=== PATIENT | male | born 1985 | race Caucasian/White ===

== ENCOUNTER 2017-09-11 14:53 | Emergency (ER) | payer MEDICAID ==
[2017-09-11 16:27] VITALS: BP 150/91
--- NOTE | 2017-09-11 16:30 | UC ---
FLU HPI - HPI Summary HPI Summary: awoke this morning with body aches, sore throat fever - History of Current Complaint Chief Complaint: UCGeneralIllness Stated Complaint: FLU-LIKE SYMPTOMS Time Seen by Provider: 09/11/17 16:29 Hx Obtained From: Patient Onset/Duration: Sudden Onset, Lasting Days - 1 Severity Currently: Mild Severity Initially: Mild Pain Intensity: 2 Pain Scale Used: 0-10 Numeric Associated Signs & Symptoms: Positive: Fever, Myalgia, Cough, Sore Throat - Allergy/Home Medications Allergies/Adverse Reactions: Allergies Allergy/AdvReac Type Severity Reaction Status Date / Time Penicillins Allergy ANAPHYAXIS Verified 09/11/17 16:27 Home Medications: Home Medications Finasteride TAB* [Proscar TAB*] 1.25 mg PO DAILY 09/11/17 [History Confirmed ] PMH/Surg Hx/FS Hx/Imm Hx Previously Healthy: Yes - Surgical History Surgical History: None - Family History Known Family History: Positive: None - Social History Occupation: Student Lives: With Family Alcohol Use: None Substance Use Type: None Smoking Status (MU): Never Smoked Tobacco Review of Systems Constitutional: Fever, Chills, Fatigue Skin: Negative Eyes: Negative ENT: Sore Throat Respiratory: Negative Cardiovascular: Negative Gastrointestinal: Negative Genitourinary: Negative Motor: Negative Neurovascular: Negative Musculoskeletal: Arthralgia, Myalgia Neurological: Headache Psychological: Negative Is Patient Immunocompromised?: No All Other Systems Reviewed And Are Negative: Yes Physical Exam Triage Information Reviewed: Yes Appearance: Well-Nourished, Ill-Appearing - mild, Pain Distress - mild Vital Signs: Initial Vital Signs Temp 99.8 F 09/11/17 16:24 Pulse 102 09/11/17 16:24 Resp 16 09/11/17 16:24 BP 150/91 09/11/17 16:24 Pulse Ox 99 09/11/17 16:24 Vital Signs Reviewed: Yes Eye Exam: Normal Eyes: Positive: Conjunctiva Clear ENT Exam: Normal ENT: Positive: Normal ENT inspection, Hearing grossly normal, Pharyngeal erythema, Nasal congestion, TMs normal, Sinus tenderness, Uvula midline. Negative: Tonsillar swelling, Tonsillar exudate, Trismus, Muffled voice, Hoarse voice, Dental tenderness Dental Exam: Normal Neck exam: Normal Neck: Positive: Supple, Nontender, No Lymphadenopathy Respiratory Exam: Normal Respiratory: Positive: Chest non-tender, Lungs clear, Normal breath sounds, No respiratory distress, No accessory muscle use Cardiovascular Exam: Normal Cardiovascular: Positive: RRR, No Murmur, Pulses Normal, Brisk Capillary Refill Musculoskeletal Exam: Normal Musculoskeletal: Positive: Strength Intact, ROM Intact, No Edema Neurological Exam: Normal Neurological: Positive: Alert, Muscle Tone Normal Psychological Exam: Normal Skin Exam: Normal Diagnostics - Laboratory Diagnostic Studies Completed/Ordered: Influenza A/B (-), RST (+) Flu Course/Dx - Course Course Of Treatment: Zithromax, increase fluids, tylenol, ibuprofen for pain follow at [place] if needed - Differential Dx/Diagnosis Provider Diagnoses: Strep Pharyngitis, Elevated Blood pressure related to Current illness Discharge - Discharge Plan Condition: Stable Disposition: HOME Prescriptions: Azithromycin TAB* [Zithromax TAB (Z-VIPIN) 250 mg #6 tabs] 250 mg PO DAILY #4 tab Patient Education Materials: Strep Throat (ED), Fever in Adults (ED) Referrals: [facility] [Outside] - If Needed
[2017-09-11] MEDS ORDERED: Azithromycin TAB* 250 MG PO ONE (17:00)
== END 2017-09-11 17:13 | disposition home or self-care (01) ==
LOC: UCEAST 14:53
DX: J02.0 Streptococcal pharyngitis (principal); R03.0 Elevated blood-pressure reading, without diagnosis of hypertension; Z88.0 Allergy status to penicillin
CPT/HCPCS: 87502; 87651; 99202; G0463

== ENCOUNTER 2017-09-19 15:58 | Emergency (ER) | payer MEDICAID ==
[2017-09-19 16:18] VITALS: BP 144/88
--- NOTE | 2017-09-19 18:57 | UC ---
Gillian Hope Nilda, scribed for Lucas Caballero MD on 09/19/17 at 1621 . Throat Pain/Nasal Brice HPI - HPI Summary HPI Summary: This patient is a 32 year old M presenting to [facility] [place] with a chief complaint of mild sore throat with R-tonsil swelling for the past week. Pain rated 2/10 in severity. Pt states 8 days ago, he was diagnosed with strep throat and was treated with abx (Azithromycin), which slightly alleviated symptoms. Pt states that now his right tonsil is swollen "to the point that I can feel it pushing against my tongue." Patient reports fatigue, right ear pain, and diarrhea secondary to abx treatment, but denies fever. Allergies include penicillins. - History of Current Complaint Stated Complaint: THROAT PAIN Time Seen by Provider: 09/19/17 16:10 Hx Obtained From: Patient Onset/Duration: Sudden Onset, Lasting Weeks - 1 week, Still Present Severity: Mild Pain Intensity: 2 Pain Scale Used: 0-10 Numeric Associated Signs & Symptoms: Positive: Other - swelling tonsil, fatigue, right ear pain, diarrhea secondary to abx; negative fever. Related History: Other (Noted In Comments) - strep throat Dx 8 days ago. - Allergies/Home Medications Allergies/Adverse Reactions: Allergies Allergy/AdvReac Type Severity Reaction Status Date / Time Penicillins Allergy ANAPHYAXIS Verified 09/19/17 16:14 PMH/Surg Hx/FS Hx/Imm Hx Previously Healthy: Yes - Surgical History Surgical History: None - Family History Known Family History: Positive: Diabetes - Social History Occupation: Student Alcohol Use: None Substance Use Type: None Smoking Status (MU): Never Smoked Tobacco Review of Systems Constitutional: Fatigue, Other - negative fever ENT: Sore Throat, Ear Ache - right, Other - tonsil swelling Gastrointestinal: Diarrhea All Other Systems Reviewed And Are Negative: Yes Physical Exam - Summary Physical Exam Summary: General: well-appearing, no pain distress Skin: warm, color reflects adequate perfusion, dry Head: normal Eyes: EOMI, SHAHEED ENT: Normal voice, Tonsils 2+ bilat but Right slightly larger than Left. No peritonsillar abscess appreciated. No exudates. Bilat TM normal. Positive cervical anterior lymphadenopathy slightly greater on right. Neck: supple, nontender Respiratory: CTA, breath sounds present Cardiovascular: RRR Abdomen: soft, nontender Bowel: present Musculoskeletal: normal, strength/ROM intact Neurological: normal, sensory/motor intact, A&O x3 Psychological: affect/mood appropriate Triage Information Reviewed: Yes Vital Signs: Initial Vital Signs Temp 98 F 09/19/17 16:15 Pulse 79 09/19/17 16:15 Resp 16 09/19/17 16:15 BP 144/88 09/19/17 16:15 Pulse Ox 98 09/19/17 16:15 Vital Signs Reviewed: Yes Throat Pain/Nasal Course/Dx - Course Course Of Treatment: NO PERITONSILLAR ABSCESS ON EXAM. VOICE NORMAL. WILL RX CLINDAMYCIN; F/U WITH ENT IF NOT IMPROVED. REEVAL SOONER IF WORSE. Assessment/Plan: BP noted and advised to follow up with PCP. Medications reviewed. Allergies noted. - Differential Dx/Diagnosis Provider Diagnoses: TONSILLITIS. elevated BP without dx of HTN. Discharge - Discharge Plan Condition: Stable Disposition: HOME Prescriptions: Clindamycin Cap(NF) [Clindamycin Cap 300 mg Cap(NF)] 300 mg PO Q6H #40 cap Patient Education Materials: Tonsillitis (ED) Referrals: [facility] [Provider Group] [facility] [place] [facility] [Outside] No Primary Care Phys,NOPCP [Primary Care Provider] - Additional Instructions: FOLLOW UP WITH ENT IF NOT IMPROVED. GET RECHECKED FOR ANY WORSENING OF YOUR CONDITION OR QUESTIONS OR CONCERNS. YOUR BLOOD PRESSURE WAS ELEVATED TODAY; FOLLOW UP WITH YOUR PRIMARY CARE DOCTOR WITHIN ONE WEEK. The documentation as recorded by the Gillian oshea Nilda accurately reflects the service I personally performed and the decisions made by me, Lucas Caballero MD.
== END 2017-09-19 16:29 | disposition home or self-care (01) ==
LOC: UCEAST 15:58
DX: J03.90 Acute tonsillitis, unspecified (principal); R03.0 Elevated blood-pressure reading, without diagnosis of hypertension
CPT/HCPCS: 99212; G0463

== ENCOUNTER 2017-11-03 10:14 | Emergency (ER) | payer BC, MEDICAID ==
[2017-11-03 10:23] VITALS: BP 122/87
--- NOTE | 2017-11-03 11:14 | RAD ---
INDICATION: Chest pain. Short of breath COMPARISON: November 30, 2009 TECHNIQUE: PA and lateral dual-energy views were obtained. FINDINGS: Bones/Soft Tissues: There are no acute bony findings. Cardiomediastinal: The cardiomediastinal silhouette is normal. Lungs: There are no infiltrates. Pleura: There are no pleural effusions. Other: None IMPRESSION: NO ACTIVE DISEASE
--- NOTE | 2017-11-03 11:42 | UC ---
Respiratory Complaint HPI - HPI Summary HPI Summary: Patient is an otherwise healthy 32-year-old male with a history of mild mitral regurgitation arrives to the with chief complaint of one month history of her mid back pain, worse with deep inhalation and better with rest. He endorses pain intermittently 1 month. Symptoms are not aggravated or alleviated with positioning. Denies cough, but endorses copious amount of green thick sputum production not associated with cough. Denies any fevers, sweats, chills. Denies any headache, calf pain, chest pain. Endorses mild shortness of breath, worse with inhalation. Denies any recent illness, recent sick contacts, or history of asthma or pneumonia. Recent travel approximately 6 weeks ago which was 6 hours and a car, but he thinks pain originally started before this. - History of Current Complaint Chief Complaint: UCRespiratory Stated Complaint: COUGH,CONGESTED Time Seen by Provider: 11/03/17 10:30 Hx Obtained From: Patient Onset/Duration: Sudden Onset, Lasting Weeks Timing: Constant Severity Initially: Mild Severity Currently: Mild Pain Intensity: 4 Pain Scale Used: 0-10 Numeric Character: Sputum Description: - thick green without cough Aggravating Factors: Deep Breaths Alleviating Factors: Nothing Associated Signs And Symptoms: Positive: Dyspnea, URI - Risk Factors Pulmonary Embolism Risk Factors: Negative Cardiac Risk Factors: Negative Pseudomonas Risk Factors: Negative Tuberculosis Risk Factors: Negative - Allergies/Home Medications Allergies/Adverse Reactions: Allergies Allergy/AdvReac Type Severity Reaction Status Date / Time Penicillins Allergy ANAPHYAXIS Verified 11/03/17 10:24 PMH/Surg Hx/FS Hx/Imm Hx Previously Healthy: Yes - Surgical History Surgical History: None - Family History Known Family History: Positive: None, Diabetes - Social History Occupation: Employed Full-time Lives: With Family Alcohol Use: None Substance Use Type: None Smoking Status (MU): Never Smoked Tobacco Review of Systems Constitutional: Fatigue Skin: Negative ENT: Other - sputum production without cough Respiratory: Shortness Of Breath Cardiovascular: Negative Gastrointestinal: Negative Motor: Negative Neurological: Negative Psychological: Negative Is Patient Immunocompromised?: No All Other Systems Reviewed And Are Negative: Yes Physical Exam Triage Information Reviewed: Yes Appearance: Well-Appearing, Well-Nourished Vital Signs: Initial Vital Signs Temp 97.6 F 11/03/17 10:20 Pulse 75 11/03/17 10:20 Resp 16 11/03/17 10:20 BP 122/87 11/03/17 10:20 Pulse Ox 100 11/03/17 10:20 Vital Signs Reviewed: Yes Eye Exam: Normal Eyes: Positive: Conjunctiva Clear Neck exam: Normal Neck: Positive: Supple Respiratory Exam: Normal Respiratory: Positive: Chest non-tender, Lungs clear Cardiovascular Exam: Normal Cardiovascular: Positive: No Murmur Abdominal Exam: Normal Abdomen Description: Positive: Nontender Neurological Exam: Normal Psychological Exam: Normal Psychological: Positive: Normal Response To Family Skin Exam: Normal UC Diagnostic Evaluation - Laboratory O2 Sat by Pulse Oximetry: 100 Respiratory Course/Dx - Course Course Of Treatment: During the course of treatment, the patient is evaluated for mid upper back pain worse with inhalation, and shortness of breath with copious amount of sputum production without cough. EKG and chest x-ray obtained , both which were normal. We have burned a copy of the chest x-ray for his PCP. I have discussed with the patient adding on an antibiotic at this time, but would be unsure if this would improve his symptoms at all. He is agreeing to this and would like me to order the antibiotic, but is unsure if he would like to pick it up at this time. He states he will wait a few more days to see if there is any symptom improvement. He has been taking Mucinex is 1.5 weeks which has been improving his sputum production. He is afebrile and without pain at this time. He will follow back up with his PCP. PERC score 0.0. - Differential Dx/Diagnosis Provider Diagnoses: Sputum production Discharge - Sign-Out/Discharge Documenting (check all that apply): Discharge - Discharge Plan Condition: Stable Disposition: HOME Prescriptions: Azithromyxin VIPIN (NF) [Z-Vipin (Zithromax) 250 mg tabs #6] 2 tab PO .TODAY, THEN 1 DAILY #6 tab Patient Education Materials: Chest Wall Pain (ED) Referrals: No Primary Care Phys,NOPCP [Primary Care Provider] - Additional Instructions: As discussed, I have sent a prescription for the azithromycin to your pharmacy. If any of your symptoms become worse, you may pick this prescription up Please follow-up with your PCP EKG and chest x-ray looked okay. - Billing Disposition and Condition Condition: STABLE Disposition: HOME
== END 2017-11-03 11:24 | disposition home or self-care (01) ==
LOC: UCEAST 10:14
DX: R09.89 Other specified symptoms and signs involving the circulatory and respiratory systems (principal); R07.89 Other chest pain; R53.83 Other fatigue; R06.02 Shortness of breath; Z88.0 Allergy status to penicillin
CPT/HCPCS: 71046; 93005; 99212; G0463

== ENCOUNTER 2018-09-23 18:07 | Emergency (ER) | payer BC, MEDICAID ==
[2018-09-23 18:20] VITALS: BP 142/81
--- NOTE | 2018-09-23 18:37 | UC ---
Cardiac HPI - HPI Summary HPI Summary: 33-year-old male comes to clinic with a chief complaint of chest pain and paresthesias. Patient reports the chest pain is chest tightness 2 out of 10 left anterior chest. He is slightly short of breath no nausea. There is a family history of heart attacks. Denies any recent upper respiratory tract infection symptoms are fevers or chills or chest congestion. The chest tightness does not get worse with laying down or walking. Today patient noticed these having tingling paresthesias in both hands and on his scalp. The paresthesias are worse in the left hand. No history of pulmonary embolus or DVT. No pedal edema. Recent travel. - History of Current Complaint Chief Complaint: UCChestPain Stated Complaint: CHEST PAIN Time Seen by Provider: 09/23/18 18:11 Pain Intensity: 4 - Allergy/Home Medications Allergies/Adverse Reactions: Allergies Allergy/AdvReac Type Severity Reaction Status Date / Time Penicillins Allergy ANAPHYAXIS Verified 09/23/18 18:21 Home Medications: Home Medications Aspirin TAB* [Aspirin 325 MG TAB*] 325 mg PO DAILY 09/23/18 [History Confirmed 09/23/18] PMH/Surg Hx/FS Hx/Imm Hx Previously Healthy: Yes - Surgical History Surgical History: Yes Surgery Procedure, Year, and Place: SEPTOPLASTY - Family History Known Family History: Positive: None, Cardiac Disease, Diabetes - Social History Alcohol Use: None Substance Use Type: None Smoking Status (MU): Never Smoked Tobacco Review of Systems All Other Systems Reviewed And Are Negative: Yes Constitutional: Positive: Negative Skin: Positive: Negative Eyes: Positive: Negative ENT: Positive: Negative Respiratory: Positive: Shortness Of Breath Cardiovascular: Positive: Chest Pain Gastrointestinal: Positive: Negative Motor: Positive: Negative Neurovascular: Positive: Negative Musculoskeletal: Positive: Negative Neurological: Positive: Paresthesia Psychological: Positive: Negative Is Patient Immunocompromised?: No Physical Exam Triage Information Reviewed: Yes Appearance: Well-Appearing, No Pain Distress, Well-Nourished Vital Signs: Initial Vital Signs Temp 97.6 F 09/23/18 18:11 Pulse 69 09/23/18 18:11 Resp 16 09/23/18 18:11 BP 142/81 09/23/18 18:11 Pulse Ox 100 09/23/18 18:11 Vital Signs Reviewed: Yes Eye Exam: Normal Eyes: Positive: Conjunctiva Clear ENT: Positive: Pharynx normal, TMs normal Neck exam: Normal Neck: Positive: Supple Respiratory: Positive: Lungs clear, Normal breath sounds, No respiratory distress Cardiovascular: Positive: RRR Musculoskeletal Exam: Normal Musculoskeletal: Positive: Strength Intact, ROM Intact, No Edema, Other: - no calf tenderness Neurological Exam: Normal Neurological: Positive: Alert, Muscle Tone Normal Psychological Exam: Normal Psychological: Positive: Age Appropriate Behavior Skin Exam: Normal Diagnostics - EKG Cardiac Rate: NL - at 1813 Cardiac Rhythm: Sinus: Normal - 74 bpm Ectopy: None Summary of EKG Findings: ST elevation, probable normal early repol pattern - Assessment/Plan Course Of Treatment: I discussed the EKG with the patient. I do not see any ectopy or ischemic change. With the patient's chest tightness one possibility is pericarditis. Patient is low risk for pulmonary the lists her DVT however that's another possibility. Vital signs stable here in clinic. I recommended further evaluation emergency Department patient prefers to go by POV. - Clinical Impression Provider Diagnosis: Chest pain, Paresthesia Discharge - Sign-Out/Discharge Documenting (check all that apply): Patient Departure All imaging exams completed and their final reports reviewed: No Studies - Discharge Plan Condition: Stable Disposition: HOME-RECOMMEND TO ED Patient Education Materials: Chest Pain (ED), Paresthesia (ED) Referrals: No Primary Care Phys,NOPCP [Primary Care Provider] - Additional Instructions: GO DIRECTLY TO THE EMERGENCY DEPARTMENT FOR FURTHER EVALUATION. - Billing Disposition and Condition Condition: STABLE Disposition: Home-Recommend to ED
== END 2018-09-23 18:42 | disposition home health service (06) ==
LOC: UCEAST 18:07
DX: R07.89 Other chest pain (principal); R20.2 Paresthesia of skin; R06.02 Shortness of breath; Z79.82 Long term (current) use of aspirin; Z88.0 Allergy status to penicillin
CPT/HCPCS: 93005; 99211; G0463

== ENCOUNTER 2019-05-15 13:03 | Emergency (ER) | payer BC, MEDICAID, OTHER ==
[2019-05-15 13:37] LABS: INR 1.12 (0.82-1.09)
[2019-05-15 13:39] LABS: ABS Eosinophils 0.2 10^3/ul (0-0.6); ABS Lymphocytes 1.5 10^3/ul (1.0-4.8); ABS Monocytes 0.4 10^3/ul (0-0.8); ABS Neutrophils 3.1 10^3/ul (1.5-7.7); Eosinophil % 3.3 %; Hematocrit 41 % (42-52); Lymphocyte % 29.2 %; Mean Corpuscular HGB Conc 36 g/dL (31-36); Mean Corpuscular Hemoglobin 32 pg (27-31); Mean Corpuscular Volume 88 fL (80-94); Mean Platelet Volume 7.4 fL (7.4-10.4); Nucleated Red Blood Cells % 0.2; Platelet Count 194 10^3/uL (150-450); Red Blood Count 4.71 10^6 /uL (4.18-5.48); Red Cell Distribution Width 13 % (10-15); White Blood Count 5.2 10^3/uL (3.5-10.8)
--- NOTE | 2019-05-15 13:45 | ED ---
HPI Chest Pain - HPI Summary HPI Summary: Pt is a 33 y/o M presenting to the ED with a chief complaint of neck and chest pain. He states it initially came on about 3 days ago, describes it as tightness bordering on pain, it radiates up the neck, and it has been constantly worsening. He notes he has been more sedentary than usual and that he has significant cardiac hx in his family, specifically of carotid artery thrombosis. He was concerned to he came to the emergency department for evaluation. No history of [place], DVT or PE, smoking, recent long trips. - History of Current Complaint Chief Complaint: EDChestPainROMI Time Seen by Provider: 05/15/19 13:16 Hx Obtained From: Patient Onset/Duration: Started Days Ago, Still Present Timing: Constant, Lasting Days Initial Severity: Mild Current Severity: Mild Pain Intensity: 3 Pain Scale Used: 0-10 Numeric Chest Pain Location: Diffuse Chest Pain Radiates: Yes Chest Pain Radiates To:: Neck Character: Tightness Aggravating Factor(s): Nothing Alleviating Factor(s): Nothing Associated Signs and Symptoms: Positive: Chest Pain, Other: - neck pain - Allergy/Home Medications Allergies/Adverse Reactions: Allergies Allergy/AdvReac Type Severity Reaction Status Date / Time Penicillins Allergy ANAPHYAXIS Verified 09/23/18 18:21 Home Medications: Home Medications NK [No Home Medications Reported] 05/15/19 [History Confirmed 05/15/19] PMH/Surg Hx/FS Hx/Imm Hx Previously Healthy: Yes Endocrine/Hematology History: Denies: Hx Diabetes Cardiovascular History: Denies: Hx Hypertension Respiratory History: Denies: Hx Chronic Obstructive Pulmonary Disease (COPD), Other Respiratory Problems/Disorders - Surgical History Surgery Procedure, Year, and Place: SEPTOPLASTY Infectious Disease History: No Infectious Disease History: Denies: Traveled Outside the [place] in Last 30 Days - Family History Known Family History: Positive: Cardiac Disease, Diabetes, Blood Disorder - carotid artery thrombosis - Social History Alcohol Use: None Hx Substance Use: No Substance Use Type: Reports: None Hx Tobacco Use: No Smoking Status (MU): Never Smoked Tobacco Review of Systems Positive: Chest Pain Positive: Myalgia - neck pain All Other Systems Reviewed And Are Negative: Yes Physical Exam - Summary Physical Exam Summary: Constitutional: Well-developed, Well-nourished, Alert. (-) Distressed Skin: Warm, Dry HENT: Normocephalic; Atraumatic. Tenderness of L sternocleidomastoid. Eyes: Conjunctiva normal Neck: Musculoskeletal ROM normal neck. (-) JVD, (-) Stridor, (-) Nuchal rigidity Cardio: Rhythm regular, rate normal, Heart sounds normal; Intact distal pulses; Radial pulses are 2+ and symmetric. (-) Murmur Pulmonary/Chest wall: Effort normal. (-) Respiratory distress, (-) Wheezes, (-) Rales Abd: Soft, (-) tenderness, (-) Distension, (-) Guarding, (-) Rebound Musculoskeletal: (-) Edema Lymph: (-) Cervical adenopathy Neuro: Alert, Oriented x3 Psych: Mood and affect Normal Triage Information Reviewed: Yes Vital Signs On Initial Exam: Initial Vitals Temp Pulse Resp BP Pulse Ox 97.5 F 65 20 147/90 100 05/15/19 13:09 05/15/19 13:09 05/15/19 13:09 05/15/19 13:09 05/15/19 13:09 Vital Signs Reviewed: Yes Procedures - Sedation Patient Received Moderate/Deep Sedation with Procedure: No Diagnostics - Vital Signs Vital Signs Temp Pulse Resp BP Pulse Ox 05/15/19 13:18 68 21 121/76 98 05/15/19 13:17 62 17 96 05/15/19 13:09 97.5 F 65 20 147/90 100 - Laboratory Lab Results: Lab Results 05/15/19 05/15/19 Range/Units 13:22 13:22 WBC 5.2 (3.5-10.8) 10^3/uL RBC 4.71 (4.18-5.48) 10^6 /uL Hgb 15.0 (14.0-18.0) g/dL Hct 41 L (42-52) % MCV 88 (80-94) fL MCH 32 H (27-31) pg MCHC 36 (31-36) g/dL RDW 13 (10-15) % Plt Count 194 (150-450) 10^3/uL MPV 7.4 (7.4-10.4) fL Neut % (Auto) 59.3 % Lymph % (Auto) 29.2 % [place] % (Auto) 7.3 % Eos % (Auto) 3.3 % Baso % (Auto) 0.9 % Absolute Neuts (auto) 3.1 (1.5-7.7) 10^3/ul Absolute Lymphs (auto) 1.5 (1.0-4.8) 10^3/ul Absolute Monos (auto) 0.4 (0-0.8) 10^3/ul Absolute Eos (auto) 0.2 (0-0.6) 10^3/ul Absolute Basos (auto) 0.0 (0-0.2) 10^3/ul Absolute Nucleated RBC 0.0 10^3/ul Nucleated RBC % 0.2 INR (Anticoag Therapy) 1.12 H (0.82-1.09) D-Dimer, Quantitative Pending Result Diagrams: 05/15/19 13:22 05/15/19 13:22 Lab Statement: Any lab studies that have been ordered have been reviewed, and results considered in the medical decision making process. - Radiology CXR Radiology Interpretation Completed By: Radiologist Summary of Radiographic Findings: No active cardiopulmonary disease is noted. ED physician has reviewed this report. - EKG 1303 Cardiac Rate: NL - 60bpm EKG Rhythm: Sinus Rhythm ST Segment: Normal Ectopy: None Summary of EKG Findings: An EKG at 1303 reveals normal sinus rhythm 60bpm, nml axis, nml intervals. No STEMI. No acute changes. ED physician has reviewed and interpreted this report. Chest Pain Course/Dx - Course Course Of Treatment: 33-year-old male with a history of blood clots in his family presents with left neck and left chest tightness. Chest Pain DDX: The patient is well appearing, with stable vitals. Given the patient's clinical presentation, highest on differential is atypical CP. Although less likely, differential also includes the following: --Pneumothorax: Equal breath sounds, story inconsistent since gradual onset of symptoms. CXR shows no evidence of pneumothorax. Unlikely. --Cardiac tamponade: The history and physical are not concerning for tamponade. No Pulsus Paradoxus, no tachypnea. Unlikely. -- Mediastinitis or esophageal rupture: The history is not consistent, as the patient has had no recent history of significant wretching, instrumentation, or mediastinal surgeries. Unlikely. --Aortic dissection: The patient does not describe the classical tearing chest pain radiating into the back, and the CXR does not show mediastinal widening or other signs of aortic dissection. Unlikely. --PE: Vitals wnl (not hypoxic, tachycardic or tachypneic). Wells low risk - d dimer neg. --ACS: The initial EKG shows no ischemic changes. The initial troponin is not elevated. Heart score - HEART Score. Based on a HEART score of 1 the patient has a low risk (<2% chance) of major adverse cardiac event within the next 6 weeks. I explained to the patient that based on the work -up today, her risk of heart attack is low and that he/she will be discharged with outpatient follow-up. Strict return precautions were discussed regarding worsening chest pain, new / atypical pain, shortness of breath, or any other serious concerns. Patient endorsed understanding and has no questions at this time. Source --. Surendra BE, Yury AJ, Solomon NAHOMY, Dorie MA, Lianne EG, Gabriela A, Linda RF,. Esvin AJ, Atul R, Karl R, Zion SH, van Ion R, Lianne TP, van dajuan Wynn F,. Parish MJ, Tamera JM, Kapil AW, Domazin PA. A prospective validation of. the HEART score for chest pain patients at the emergency department. Int J. Cardiol. 2013 Apr 3;168(3):2153-8. 0-3: 2.5% risk of adverse cardiac event. In the HEART Score, these patients were discharged. (0.99% retrospective) (1.7% prospective). 4-6: 20.3% risk of adverse cardiac event, suggesting admission to the hospital. 11.6% (16.6% prospective). =7: 72.7% risk of adverse cardiac event, suggesting early invasive measures with these patients. 65.2% (50.1% prospective) - Diagnoses Provider Diagnoses: Neck pain, Chest tightness Discharge ED - Sign-Out/Discharge Documenting (check all that apply): Patient Departure - Discharge Plan Condition: Stable Disposition: HOME Patient Education Materials: Chest Pain (ED), Neck Pain (ED) Referrals: [facility] [Outside] Additional Instructions: You were seen in the emergency department for neck and chest pain. Your EKG ( heart tracing), labs and chest x-ray did not show any cause for pain. Your number for blood clots was normal. Important that you follow up with you primary care doctor in the next 1-2 days to help schedule an outpatient stress test. Please return to the emergency department for continued chest pain, trouble breathing, passing out, or if you're concerned. - Billing Disposition and Condition Condition: STABLE Disposition: Home - Attestation Statements Document Initiated by Kennaibflorecita: Yes Documenting Scribe: Phylicia Acosta Provider For Whom Abrahan is Documenting (Include Credential): Mingo Ibrahim MD. Scribe Attestation: I, Phylicia Acosta, scribed for Mingo Ibrahim MD. on 05/15/19 at 1559. Scribe Documentation Reviewed: Yes Provider Attestation: The documentation as recorded by the scribe, Phylicia Acosta accurately reflects the service I personally performed and the decisions made by me, Mingo Ibrahim MD. Status of Scribe Document: Viewed
[2019-05-15 13:52] LABS: Albumin 4.2 g/dL (3.2-5.2); Albumin/Globulin Ratio 1.5 (1-3); BUN/Creatinine Ratio 11.9 (8-20); Calcium 9.6 mg/dL (8.6-10.3); EGFR African American 85.5 (>60); EGFR Non-African American 70.7 (>60); Globulin 2.8 g/dL (2-4); Potassium 4.3 mmol/L (3.5-5.0); Total Bilirubin 0.8 mg/dL (0.2-1.0)
[2019-05-15 16:40] VITALS: BP 120/78
== END 2019-05-15 16:39 | disposition home or self-care (01) ==
LOC: ED 13:03
DX: M54.2 Cervicalgia (principal); R07.89 Other chest pain; Z88.0 Allergy status to penicillin
CPT/HCPCS: 36415; 71046; 80053; 84484; 85025; 85379; 85610; 93005; 99283

== ENCOUNTER 2019-05-27 14:47 | Emergency (ER) | payer OTHER ==
[2019-05-27 15:01] VITALS: BP 110/75
--- NOTE | 2019-05-27 15:24 | UC ---
Neck Pain HPI - HPI Summary HPI Summary: pain in left side of neck-awoke with this pain 2 weeks ago. 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 - History of Current Complaint Chief Complaint: UCUpperExtremity Stated Complaint: PAIN IN NECK Time Seen by Provider: 05/27/19 15:12 Hx Obtained From: Patient Mechanism Of Injury: No Known Trauma Timing: Constant Onset/Duration: Sudden Onset, Lasting Weeks - 2, Still Present Pain Intensity: 7 Pain Scale Used: 0-10 Numeric Location: Discrete At: - left side of neck trapezius and sterocleidomastoid Character: Aching, Stiff, Spasmotic Aggravating Factors: Movement Alleviating Factors: Position Associated Signs & Symptoms: Positive: Negative - Allergies/Home Medications Allergies/Adverse Reactions: Allergies Allergy/AdvReac Type Severity Reaction Status Date / Time Penicillins Allergy ANAPHYAXIS Verified 05/27/19 15:01 Home Medications: Home Medications Aspirin TAB* [Aspirin 325 MG TAB*] 325 mg PO ONCE PRN 05/27/19 [History Confirmed 05/27/19] diphenhydrAMINE HCl [Benadryl Allergy] 25 mg PO DAILY PRN 05/27/19 [History Confirmed 05/27/19] PMH/Surg Hx/FS Hx/Imm Hx Previously Healthy: Yes - Surgical History Surgical History: Yes Surgery Procedure, Year, and Place: SEPTOPLASTY - Family History Known Family History: Positive: Cardiac Disease, Diabetes, Blood Disorder - carotid artery thrombosis - Social History Occupation: Employed Full-time Lives: With Family Alcohol Use: None Substance Use Type: None Smoking Status (MU): Never Smoked Tobacco Review of Systems All Other Systems Reviewed And Are Negative: Yes Constitutional: Positive: Negative Skin: Positive: Negative Eyes: Positive: Negative ENT: Positive: Negative Respiratory: Positive: Negative Cardiovascular: Positive: Negative Gastrointestinal: Positive: Negative Genitourinary: Positive: Negative Motor: Positive: Negative Neurovascular: Positive: Negative Musculoskeletal: Positive: Myalgia - left side of neck Neurological: Positive: Negative Psychological: Positive: Negative Is Patient Immunocompromised?: No Physical Exam Triage Information Reviewed: Yes Appearance: Well-Appearing, No Pain Distress, Well-Nourished Vital Signs: Initial Vital Signs Temp 98 F 05/27/19 14:59 Pulse 83 05/27/19 14:59 Resp 15 05/27/19 14:59 BP 110/75 05/27/19 14:59 Pulse Ox 99 05/27/19 14:59 Vital Signs Reviewed: Yes Eye Exam: Normal Eyes: Positive: Conjunctiva Clear ENT Exam: Normal ENT: Positive: Normal ENT inspection, Hearing grossly normal. Negative: Trismus , Muffled voice, Hoarse voice Dental Exam: Normal Neck exam: Normal Neck: Positive: Supple, Nontender Respiratory Exam: Normal Respiratory: Positive: Chest non-tender, Lungs clear, Normal breath sounds, No respiratory distress, No accessory muscle use Cardiovascular Exam: Normal Cardiovascular: Positive: RRR, Brisk Capillary Refill Musculoskeletal Exam: Normal Musculoskeletal: Positive: Other: - pain left trap. and sternocleidomastaid Neurological Exam: Normal Psychological Exam: Normal Skin Exam: Normal Neck Pain Course/Dx - Course Course Of Treatment: pt referral, nsaid and muscle relaxer, follow with [facility] untill patient returns to his pcp in [facility] - Differential Dx/Diagnosis Provider Diagnosis: Cervical muscle strain Discharge ED - Sign-Out/Discharge Documenting (check all that apply): Patient Departure All imaging exams completed and their final reports reviewed: No Studies - Discharge Plan Condition: Stable Disposition: HOME Prescriptions: Cyclobenzaprine TAB* [Flexeril 10 MG TAB*] 10 mg PO TID PRN #15 tab PRN Reason: muscle tightness Naproxen Sodium [Naproxen Sodium 500 MG TAB] 500 mg PO BID PRN #20 tab PRN Reason: Pain - Moderate Patient Education Materials: Cervical Strain (ED), Acute Neck Pain (ED) Referrals: [facility] [Outside] - If Needed - Billing Disposition and Condition Condition: STABLE Disposition: Home - Attestation Statements Provider Attestation: I was available for consult. This patient was seen by the MICHELLE. The patient was not presented to , seen by or examined by me Ashlyn Mccurdy MD
== END 2019-05-27 15:37 | disposition home or self-care (01) ==
LOC: UCEAST 14:47
DX: S16.1XXA Strain of muscle, fascia and tendon at neck level, initial encounter (principal); Z88.0 Allergy status to penicillin; Z79.82 Long term (current) use of aspirin; X58.XXXA Exposure to other specified factors, initial encounter; Y92.9 Unspecified place or not applicable
CPT/HCPCS: 99212; G0463

== ENCOUNTER 2019-05-29 00:59 | Emergency (ER) | payer OTHER ==
[2019-05-29] MEDS ORDERED: Cocaine 4% TOPICAL* 4 ML TOP.SOLN TOPICAL ONE (01:36)
--- NOTE | 2019-05-29 01:40 | ED ---
Throat Pain/Nasal Congestion - HPI Summary HPI Summary: Patient is a 33 y/o M presenting to the ED for a chief complaint of epistaxis. On 05/28/19, patient felt his left naris was dry and picked the left naris after which he began to bleed. Applying pressure to the nose did not stop the bleeding. Patient admits taking aspirin earlier in the day for neck pain for the last 2 weeks. Patient denies fever, myalgia, cough, or headache. Patient had a nasal surgery 15 years ago on the same naris. - History of Current Complaint Chief Complaint: EDEpistaxis Time Seen by Provider: 05/29/19 01:33 Hx Obtained From: Patient Onset/Duration: Sudden Onset, Lasting Minutes, Still Present Severity: Moderate Associated Signs And Symptoms: Positive: Negative Cough: None - Allergies/Home Medications Allergies/Adverse Reactions: Allergies Allergy/AdvReac Type Severity Reaction Status Date / Time Penicillins Allergy ANAPHYAXIS Verified 05/27/19 15:01 PMH/Surg Hx/FS Hx/Imm Hx Previously Healthy: Yes Endocrine/Hematology History: Denies: Hx Diabetes, Hx Thyroid Disease Cardiovascular History: Denies: Hx Hypercholesterolemia, Hx Hypertension Respiratory History: Denies: Hx Asthma, Hx Chronic Obstructive Pulmonary Disease (COPD), Other Respiratory Problems/Disorders GI History: Denies: Hx Ulcer Sensory History: Denies: Hx Legally Blind, Hx Deafness Opthamlomology History: Denies: Hx Legally Blind EENT History: Denies: Hx Deafness - Surgical History Surgical History: Yes Surgery Procedure, Year, and Place: SEPTOPLASTY Infectious Disease History: No Infectious Disease History: Denies: Hx Hepatitis, Hx Human Immunodeficiency Virus (HIV), Traveled Outside the [place] in Last 30 Days - Family History Known Family History: Positive: Cardiac Disease, Diabetes, Blood Disorder - carotid artery thrombosis - Social History Occupation: Works From/At Home Lives: Alone Alcohol Use: None Hx Substance Use: No Substance Use Type: Reports: None Hx Tobacco Use: No Smoking Status (MU): Never Smoked Tobacco Review of Systems Negative: Fever Positive: Epistaxis - Left naris Negative: Cough Positive: Arthralgia - Neck pain. Negative: Myalgia Negative: Headache All Other Systems Reviewed And Are Negative: Yes Physical Exam - Summary Physical Exam Summary: Appearance: Well-appearing, Well-nourished, lying in bed comfortable Skin: Warm, dry, no obvious rash Eyes: sclera anicteric, no conjunctival pallor ENT: mucous membranes moist Neck: deferred Respiratory: No signs of respiratory distress Cardiovascular: Appears well perfused, pulses are nml Abdomen: deferred Musculoskeletal: Moving all 4 extremities without obvious discomfort Neurological: Awake and alert, mentation is normal, speech is fluent and appropriate Psychiatric: affect is normal, does not appear anxious or depressed Triage Information Reviewed: Yes Vital Signs On Initial Exam: Initial Vitals Temp Pulse Resp BP Pulse Ox 98.8 F 97 18 150/95 98 05/29/19 01:08 05/29/19 01:08 05/29/19 01:08 05/29/19 01:08 05/29/19 01:08 Vital Signs Reviewed: Yes Procedures - Procedure Summary Procedure Summary: Rhinorocket procedure: (cocaine 4%) were used as topical agents]. After clearing clots by patient blowing, I placed a prepped anterior rhinorocket; this was chosen as the patient appeared to continue to bleed through the back of her throat while holding appropriate pressure on the nose. The patient tolerated this well and the balloon was inflated with 5 ml of air. Will observe to see if that controls the bleeding. - Sedation Patient Received Moderate/Deep Sedation with Procedure: No Diagnostics - Vital Signs Vital Signs Temp Pulse Resp BP Pulse Ox 05/29/19 01:08 98.8 F 94 18 150/95 98 - Laboratory Lab Statement: Any lab studies that have been ordered have been reviewed, and results considered in the medical decision making process. EENT Course/Dx - Course Course Of Treatment: Patient is a 33 y/o M presenting to the ED for a chief complaint of epistaxis. On 05/28/19, patient felt his left naris was dry and picked the left naris after which he began to bleed. Applying pressure to the nose did not stop the bleeding. Patient admits taking aspirin earlier in the day for neck pain for the last 2 weeks. Patient denies fever, myalgia, cough, or headache. Patient had a nasal surgery 15 years ago on the same naris. On exam, unremarkable findings. In the ED course, patient was given cocaine 4% 1 applic TOPICAL. Rhinorocket procedure: (cocaine 4%) were used as topical agents ]. After clearing clots by patient blowing, I placed a prepped anterior rhinorocket; this was chosen as the patient appeared to continue to bleed through the back of her throat while holding appropriate pressure on the nose. The patient tolerated this well and the balloon was inflated with 5 ml of air. Will observe to see if that controls the bleeding. Patient will be discharged with a diagnosis of epistaxis. Follow up with PCP in 2 days. - Diagnoses Provider Diagnoses: Epistaxis Discharge ED - Sign-Out/Discharge Documenting (check all that apply): Patient Departure - Discharge - Discharge Plan Condition: Good Disposition: HOME Patient Education Materials: Nosebleed (ED) Referrals: Neal Macias MD [Medical Doctor] - 3 Days Additional Instructions: Keep the packing in until your followup with the ENT physician later this week. You do have to be careful with it as some of it extends out from your face. - Billing Disposition and Condition Condition: GOOD Disposition: Home - Attestation Statements Document Initiated by Abrahan: Yes Documenting Scribe: Gloria Rod Provider For Whom Abrahan is Documenting (Include Credential): Lee Smith MD Scribe Attestation: Gloria Hope scribed for Lee Smith MD on 06/01/19 at 0305. Scribe Documentation Reviewed: Yes Provider Attestation: The documentation as recorded by the Gloria oshea accurately reflects the service I personally performed and the decisions made by Lee jenkins MD Status of Scribe Document: Viewed
[2019-05-29 04:46] VITALS: BP 129/75
== END 2019-05-29 04:52 | disposition home or self-care (01) ==
LOC: ED 00:59
DX: R04.0 Epistaxis (principal); M54.2 Cervicalgia; Z88.0 Allergy status to penicillin
CPT/HCPCS: 99282; A9270-GY